=== PATIENT | male | born 1970 | race Caucasian/White ===

== ENCOUNTER 2016-12-28 20:44 | Emergency (ER) | payer OTHER ==
--- NOTE | 2016-12-28 21:03 | EDPHY ---
H & P Stated Complaint: LEFT ARM NUMBNESS AFTER NERVE BLOCK Time Seen by Provider: 12/28/16 21:01 HPI/ROS: HPI: This is a 46-year-old male who presents with Chief Complaint: LEFT ARM NUMBNESS AFTER NERVE BLOCK Location: Left arm Quality: Numbness Duration: Approximately 4 hours Signs and Symptoms: No bleeding, no radiation, + numbness, no weakness, no tingling, no incontinence, no decreased range of motion Timing: Rapid onset Severity: Moderate to severe Context: Patient had arthroscopic left rotator cuff surgery and what sounds like biceps tenodesis today outpatient by Dr. Roberto. It appears he may have received an interscalene nerve block. Surgery was scheduled at 7:30 a.m. Surgery was completed and was in [facility] by 9:30 a.m. he was discharged home by 11: 30 a.m. around 5:00 p.m. this evening patient noticed numbness in his left arm from his shoulder down to all of his fingers. Over 2 hours, he then noticed he was unable to to move any of his fingers. He states since that time, the numbness has slightly decreased. He denies any pain at this time/discoloration of his skin/tingling. Right-hand dominant. Modifying Factors: Wearing shoulder immobilizer Comment: ROS: see HPI Constitutional: No fever, no chills, no weight loss Eyes: No blurred vision Respiratory: No shortness of breath, no cough Cardiovascular: No chest pain Gastrointestinal: No nausea, no vomiting no diarrhea Genitourinary: No dysuria Extremities: No myalgias Neurologic: + weakness, + numbness Skin: No rashes Hematologic: No bruising, no bleeding MEDICAL/SURGICAL/SOCIAL HISTORY: Medical history: high cholesterol Surgical history: PFO closure Social history: . CONSTITUTIONAL: Well developed nourished adult white male, at bedside, awake and alert, no obvious distress HEENT: Atraumatic and normocephalic, PERRL, EOMI. Tympanic membranes clear. Oropharynx clear, no exudate and moist pink mucosa. Airway patent. No lymphadenopathy. No meningismus. Cardiovascular: Normal S1/S2, regular rate, regular rhythm, without murmur rub or gallop. PULMONARY/CHEST: Symmetrical and nontender. Clear to auscultation bilaterally. Good air movement. No accessory muscle usage. ABDOMEN: Soft, nondistended, nontender, no rebound, no guarding, no peritoneal signs, no masses or organomegaly. No CVAT. EXTREMITIES: 2/2 radial and axillary pulses, left shoulder shows dressing over shoulder region; able to feel sharp sensation over the deltoid, light sensation in the forearm, light sensation on the hand, light sensation in fingers 2 and 4 with no sensation in fingers 1, 3 and 5. Left wrist has full range of motion of flexion/extension/rotation. Left elbow has full range of motion of extension flexion. no deformities, no clubbing, no cyanosis or edema. NEUROLOGICAL: no focal neuro deficits. GCS 15. SKIN: Warm and dry, no erythema. no rash. Good capillary refill. Source: Patient Exam Limitations: No limitations - Personal History Current Tetanus/Diphtheria Vaccine: Yes - Medical/Surgical History Hx Asthma: No Hx Chronic Respiratory Disease: No Hx Diabetes: No Hx Cardiac Disease: No Hx Renal Disease: No Hx Cirrhosis: No Hx Alcoholism: No Hx HIV/AIDS: No Hx Splenectomy or Spleen Trauma: No Other PMH: ARTHOSCOPIC ROTATOR CUFF/ LEFT SHOULDER PROCEDURE WITH NERVE BLOCK . PFO closure, high cholesterol - Social History Smoking Status: Never smoked Constitutional: Initial Vital Signs Temperature (C) 36.8 C 12/28/16 20:47 Heart Rate 48 L 12/28/16 20:47 Respiratory Rate 18 12/28/16 20:47 Blood Pressure 116/73 12/28/16 20:47 O2 Sat (%) 99 12/28/16 20:47 O2 Delivery Mode Room Air Allergies/Adverse Reactions: No Known Allergies Allergy (Unverified 04/24/15 13:54) Home Medications: Medication Instructions Recorded Simvastatin [Zocor] 40 mg PO HS 04/24/15 Medical Decision Making ED Course/Re-evaluation: Patient's symptoms appear to be gradually improving. 2114: ED decision to consult Dr. Roberto. Spoke with a Dr. Roberto regarding findings. Patient's numbness and weakness are improving while in the ER the last [address] Roberto advises patient is safe to be discharged home. He is to call the office in the morning for close follow-up appointment. No signs of neurovascular compromise/tenting of skin/compartment syndrome/ extremities and joints examined above and below area of concern and are neurovascularly intact/ischemia. Differential Diagnosis: ED differential diagnosis includes nerve injury, longstanding effects of anesthesia nerve block. Departure - Departure Disposition: Home, Routine, Self-Care Clinical Impression: Status post rotator cuff surgery, Motor nerve conduction block Condition: Good Additional Instructions: Please call Dr. Roberto office in the morning for follow-up appointment tomorrow for reassessment. Please follow all postoperative instructions per Orthopedics. Referrals: Miracle Rivas MD [Primary Care Provider] - As per Instructions Marcus Roberto MD [Medical Doctor] - As per Instructions
[2016-12-28 22:28] VITALS: BP 101/67; PULSE 50; RESP 16; TEMP 98.1; O2SAT 95
== END 2016-12-28 22:28 | disposition home or self-care (01) ==
DX: R20.0 Anesthesia of skin (principal); Z98.890 Other specified postprocedural states